=== PATIENT | female | born 1950 | race Caucasian/White ===

== ENCOUNTER → 2022-01-30 | Outpatient (CLI) | payer MEDICARE ==
--- NOTE | 2022-01-30 11:14 | Diagnostic Imaging Report ---
INDICATION: Right foot injury with pain. AP and lateral views of right foot are obtained. No acute fractures identified. Sesamoid bone along the inferior cuboid region does contain central lucency which may be related to fracture. There is mild enthesopathy along the plantar fossa insertion at the calcaneus. IMPRESSION: No definite acute abnormality identified. Possibility of subacute sesamoid or accessory ossicle fracture adjacent to cuboid bone is not excluded. Correlation site of pain would be of use. Dictated by: Dictated on workstation # [id number]
== END ==
LOC: RAD FS 10:19
PROVIDERS: ATTEND Registered Nurse Emergency
DX: S99.921A Unspecified injury of right foot, initial encounter (principal); X58.XXXA Exposure to other specified factors, initial encounter
CPT/HCPCS: 73630

== ENCOUNTER → 2022-03-06 | Outpatient (CLI) | payer MEDICARE | LOC: LABNPT 16:32 | PROVIDERS: ATTEND Registered Nurse Emergency | DX: L02.512 Cutaneous abscess of left hand (principal); W55.01XA Bitten by cat, initial encounter | CPT/HCPCS: 87070; 87077; 87205 ==

== ENCOUNTER → 2022-03-07 | Outpatient (CLI) | payer MEDICARE ==
--- NOTE | 2022-03-07 16:45 | Diagnostic Imaging Report ---
INDICATION: Follow-up foot fracture. TIME OF EXAM: 2:35 PM. COMPARISON: Correlation is made with prior radiograph from 01/30/2022. The metatarsals are intact. Phalanges are intact. Midfoot and hindfoot are unremarkable. Lucency through the sesamoid adjacent to the cuboid is again noted and appears similar to prior exam. There is a large plantar calcaneal spur. IMPRESSION: Findings remain suspicious for a fracture involving the sesamoid at the cuboid. Lucency persists. No new abnormality is identified. Dictated by: Dictated on workstation # [id number]
== END ==
LOC: RAD FS 14:23
PROVIDERS: ATTEND Orthopaedic Surgery
DX: S92.201D Fracture of unspecified tarsal bone(s) of right foot, subsequent encounter for fracture with routine healing (principal); X58.XXXD Exposure to other specified factors, subsequent encounter
CPT/HCPCS: 73630

== ENCOUNTER → 2022-03-08 | Outpatient (CLI) | payer MEDICARE | LOC: ORTHO 14:31 | PROVIDERS: ATTEND Orthopaedic Surgery | DX: S92.201D Fracture of unspecified tarsal bone(s) of right foot, subsequent encounter for fracture with routine healing (principal); E11.9 Type 2 diabetes mellitus without complications; E78.5 Hyperlipidemia, unspecified; E03.9 Hypothyroidism, unspecified; X58.XXXD Exposure to other specified factors, subsequent encounter ==